=== PATIENT | female | born 1995 | race American Indian/Alaskan Native ===

== ENCOUNTER 2025-01-08 10:03 | Outpatient (REF) | payer MEDICAID, SELFPAY ==
--- NOTE | 2025-01-08 09:50 | PAPFT_PTH ---
PATIENT: Sandra Nogueira LOC: [facility] U#:[id number] AGE/SX: 29/F ROOM: RE01/08/[address]: Codie Carreon NP : 1995 BED: DIS: 01/08/2025 SPEC #: [id number] RECD: 01/08/25 12:46 STATUS: ANDREA REQ #: [id number] KIEL: 01/08/25 09:[address]: Lauri JOHNS,Codie [facility]PT[facility] Cytology RECD BY: Priyanka Vera ENTERED: 01/08/25 12:47 SP TYPE: PAPFT OTHR DR: Unknown,Unknown Tissues: 1 - CX/ENDOCX FOR PAP SMEARS Procedures: PAP THIN PREP/[facility] Screening HPV DNA PROBE Comments: [id number] (HPV 16 & 18/45)
== END 2025-01-08 10:04 | disposition home or self-care (01) ==
LOC: LBN 10:03
PROVIDERS: Visit Provider Nurse Practitioner Women's Health
DX: Z12.4 Encounter for screening for malignant neoplasm of cervix (principal)
CPT/HCPCS: 88142; 87624

== ENCOUNTER 2025-02-14 12:29 | Outpatient (REF) | payer MEDICAID, SELFPAY ==
[2025-02-14 15:01] LABS: Abs Immature Grans 0.01 10^3/uL (0.0-0.06); HCT 42.1 % (36.0-46.0); HGB 13.8 g/dL (11.2-15.7); Immature Grans % 0.2 %; MCH 29.7 pg (27.0-33.0); MCHC 32.8 % (32.0-36.0); MCV 91 fL (80-95); MPV 11.5 fL (8.0-11.0); Platelet Count 214 10^3/uL (130-400); RBC 4.65 10^6/uL (3.93-5.22); RDW 12.6 % (11.7-14.6); RDW-SD 41.8 fL; WBC 6.22 10^3/uL (4.4-10.8)
[2025-02-14 15:09] LABS: Hemoglobin A1C 5.2 % (<5.7)
[2025-02-14 15:34] LABS: ALT 23 U/L (14-59); AST 18 U/L (15-37); Albumin 4.0 g/dL (3.4-5.0); Alkaline Phosphatase 59 U/L (46-116); Anion Gap 8.6 mmol/L (3-11); BUN 15 mg/dL (7-18); Bilirubin, Total 0.6 mg/dL (0.2-1.0); CO2 27.4 mmol/L (21.0-32.0); Calcium 9.3 mg/dL (8.5-10.1); Chloride 103 mmol/L (98-107); Estimated GFR 119.99 (mL/min/1.73m2); Glucose 87 mg/dL (74-106); Potassium 4.5 mmol/L (3.5-5.1); Sodium 139 mmol/L (136-145); TSH (W/Ref FT4) 1.56 uIU/mL (0.36-3.74); Total Protein 7.4 g/dL (6.4-8.2); Vitamin B12 433 pg/mL (193-986)
== END 2025-02-14 12:30 | disposition home or self-care (01) ==
LOC: LBN 12:29
PROVIDERS: Visit Provider Physician Assistant Medical
DX: R53.83 Other fatigue (principal)
CPT/HCPCS: 80053; 82533; 82607; 83036; 84443; 85025

== ENCOUNTER 2025-03-15 16:53 | Emergency (ER) | payer MEDICAID, SELFPAY ==
[2025-03-15 16:55] VITALS: BP 102/80; PULSE 107; RESP 18; TEMP 37.5; O2SAT 95
--- NOTE | 2025-03-15 17:00 | DI.CT_ITS ---
Exam(s) CT ABDOMEN PELVIS WO EXAM: CT ABDOMEN PELVIS WO CLINICAL HISTORY: Lower abd pain, Flank pain, vomiting. TECHNIQUE: Imaging Protocol: Axial computed tomography images with coronal and sagittal reformatted images were created and reviewed CONTRAST MATERIAL: Intravenous: none Oral: None COMPARISON: No exams were available for comparison FINDINGS: VISUALIZED LUNG BASES: No nodules nor pleural effusions evident. ABDOMEN: There is no ascites. LIVER: There are no obvious focal hepatic lesions evident of this noninfused study. GALLBLADDER/BILIARY: No obvious gallbladder pathology. CBD is not dilated. PANCREAS: No evidence of pancreatic mass nor dilatation of the pancreatic duct. SPLEEN: Spleen is not enlarged. No obvious intrasplenic lesions. ADRENALS: There are no significant adrenal masses. KIDNEYS:Surgical clips medial to the right kidney but no significant focal findings in the right kidney. The right renal pelvis is not dilated. There are no calculi. No hydronephrosis nor hydroureter on either side there are no renal cysts nor solid renal masses evident on this noninfused study.. ABDOMINAL AORTA: Abdominal aorta is not enlarged. LYMPH NODES: There is no retroperitoneal nor paraaortic adenopathy. ABDOMINAL WALL: There is some atrophy or underdevelopment of part of the right rectus abdominal muscle in the upper abdomen. GI: There is no evidence of bowel obstruction, free air, nor abscess. PELVIS: LYMPH NODES: There is no intrapelvic nor inguinal adenopathy. GI: No evidence of appendicitis.No significant sigmoid diverticular disease. No obvious colitis pattern. No obvious abnormality of the terminal ileum. URINARY BLADDER: No calculi nor obvious masses evident REPRODUCTIVE: Uterus and adnexal regions appear unremarkable. No free pelvic fluid. OSSEOUS: No significant osseous lesions. No fractures. No listhesis. No pars defects. IMPRESSION: 1. There are clips medial to the right kidney. There are no distinct focal abnormal renal findings. No calculi. No hydronephrosis. No evidence of obvious UPJ obstruction. Report called by myself to ER provider 03/15/2025 at 5:44 p.m. RADIATION DOSE DELIVERED: 545.54mGy.cm Total DLP DATA REPOSITORY: All CT scans at this facility are submitted to the National Radiology Data Registry (NRDR) Dose Index Registry (DIR) with the [employer] ([employer]). RADIATION OPTIMIZATION: All CT scans at this facility use at least one of these dose optimization techniques: automated exposure control; mA and/or kV adjustment per patient size (includes targeted exams where dose is matched to clinical indication); or iterative reconstruction.
[2025-03-15 17:07] VITALS: BP 102/80; PULSE 107; RESP 18; TEMP 37.5; O2SAT 95
--- NOTE | 2025-03-15 17:09 | W.ED.GENAD ---
Discharge Plan Disposition Patient Disposition: Home Condition: Stable Discharge Details Clinical Impression: UTI (urinary tract infection) Primary Care Provider: Unknown,Unknown ED Provider: Alejandra Miguel Home Meds and New Rx's Prescriptions: New cephalexin 500 mg tablet 500 mg PO BID 10 Days Qty: 20 0RF Rx Instructions: Please take 1 tablet by mouth twice daily for the next 10 days Discharge Instructions Instructions: Urinary Tract Infection, Adult ED Additional Instructions: At this time no evidence for kidney stones or appendicitis. It does appear that you have a urinary tract infection. Please take the antibiotic twice daily for the next 10 days. You are given the first dose here today. You may use the nausea medication 20 to 30 minutes before eating or drinking anything up to 3 times daily. Follow up with primary care provider in 3-5 days. Return to ED sooner if any worsening or concerns. Increase oral fluids. Please take Tylenol or Ibuprofen with food every 4-6 hours as needed for pain and swelling. Thank you for allowing us to care for you today. Stand Alone Forms: Portal Information Referrals: Primary Care Provider [Outside] - 5 days Referral Note: ER follow-up, call for an appointment Discharge Data Discharge Date/Time-TO BE ENTERED AT DEPARTURE: 03/15/25 18:06 HPI General Mode of arrival: ambulatory. Date/Time Provider Initiated Documentation: 03/15/25 16:59. Limitations to Documentation: no limitations. Information obtained by: patient, RN notes reviewed and old records reviewed. HPI Narrative: 29-year-old female presents to the ER with a chief complaint of lower abdominal pain and bilateral flank pain associated with vomiting. This began around 2:00 this morning. Patient states she had food poisoning type symptoms nausea vomiting diarrhea. She reports that the pain is continued. 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 Did not take any medications prior to arrival. Related Data Home Medications Medication Instructions Recorded Confirmed cephalexin 500 mg tablet 500 mg PO BID UTI 10 days #20 tabs 03/15/25 Previous Rx's Medication Instructions Recorded cephalexin 500 mg tablet 500 mg PO BID UTI 10 days #20 tabs 03/15/25 Allergies Allergy/AdvReac Type Severity Reaction Status Date / Time No Known Allergies Allergy Verified 03/15/25 16:59 General Stated Complaint: FlankPain RENEE: 3 Review of Systems Gastrointestinal Gastrointestinal: Reports abdominal pain, Reports diarrhea, Reports nausea and Reports vomiting Genitourinary Genitourinary: Reports as per HPI, Reports dysuria and Reports flank pain Musculoskeletal Musculoskeletal: Reports as per HPI and Reports back pain Exam Narrative Exam Narrative: Constitutional: Alert and oriented x3. Appears stated age. Normal body habitus. Head: Normocephalic, no trauma. Eyes: Pupils PERRL, Red reflex noted, EOM's intact. Eyelids symmetrical without lesions, discharge, or swelling. Chest: RRR, Normal S1, S2, distal pulses intact. Resp: Lungs clear to auscultation bilaterally, no wheezes, rales, or rhonchi. Abdomen: Soft, non-distended, Normoactive bowel sounds all 4 quads. Tender with palpation left and right lower abdomen. No masses or guarding noted. Musculoskeletal: Normal gait, Moves all 4 extremities without difficulty. Skin: No suspicious rashes or lesions. Capillary refill less than 2 sec. Neurologic: Cranial nerves II-XII intact. Alert and oriented x 3. Motor: No deficits noted. Sensory: Intact bilaterally all 4 extremities. Hematologic/Lymphatic: No ecchymosis, no lymphadenopathy. Course Vital Signs Vital signs: Vital Signs Temperature 37.5 C 03/15/25 16:55 Pulse 107 H 03/15/25 16:55 Respiratory Rate 18 03/15/25 16:55 Blood Pressure 102/80 03/15/25 16:55 Pulse Oximetry 95 03/15/25 16:55 Temperature 37.5 C 03/15/25 17:07 Pulse 107 H 03/15/25 17:07 Respiratory Rate 18 03/15/25 17:07 Blood Pressure 102/80 03/15/25 17:07 Pulse Oximetry 95 03/15/25 17:07 Pain Level 8 03/15/25 17:07 Medical Decision Making 29-year-old female presents to the ER with a chief complaint of lower abdominal pain and bilateral flank pain associated with vomiting. This began around 2:00 this morning. Patient states she had food poisoning type symptoms nausea vomiting diarrhea. She reports that the pain is continued. 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 Did not take any medications prior to arrival. Workup ordered including CBC, CMP lipase urinalysis urine and CT abdomen pelvis without contrast. CBC shows a slight leukocytosis with a white blood cell count of 12.05, CT shows no kidney stones or evidence of appendicitis. Urinalysis shows 40 ketones small leukocytes 20-50 RBCs and greater than 50 WBCs with moderate epithelial cells. Squamous contamination noted so no culture at this time however I am concerned that patient does have a urinary tract infection. I will add on a urine culture and treat with cephalexin. Discussed CT results with patient who verbalized understanding discharged in hemodynamically stable condition. This text was generated using [employer] dictation system, please disregard any oddities of phrase or misspellings. Lab Data Lab results reviewed: Yes I reviewed the patient's lab results. Labs: 03/15/25 17:50 Urine - Clean Catch Urine Culture - Pending Laboratory Tests Range/Units 03/15/25 03/15/25 17:10 17:22 WBC (4.4-10.8) 10^3/uL 12.05 H RBC (3.93-5.22) 10^6/uL 4.69 Hgb (11.2-15.7) g/dL 14.2 Hct (36.0-46.0) % 41.5 MCV (80-95) fL 89 MCH (27.0-33.0) pg 30.3 MCHC (32.0-36.0) % 34.2 RDW (11.7-14.6) % 13.2 Plt Count (130-400) 10^3/uL 193 MPV (8.0-11.0) fL 10.6 Immature Gran % % 0.2 Neutrophils % % 93.8 Lymphocytes % % 2.9 Monocytes % % 2.8 Eosinophils % % 0.1 Basophils % % 0.2 Nucleated RBC % (0.0-0.3) % 0.0 Absolute Neutrophils (1.2-6.7) 10^3/uL 11.30 H Absolute Lymphocytes (1.2-3.4) 10^3/uL 0.35 L Absolute Monocytes (0.1-0.8) 10^3/uL 0.34 Absolute Eosinophils (0.0-0.7) 10^3/uL 0.01 Absolute Basophils (0.0-0.2) 10^3/uL 0.02 Sodium (136-145) mmol/L 140 Potassium (3.5-5.1) mmol/L 4.0 Chloride (98-107) mmol/L 107 Carbon Dioxide (20.0-31.0) mmol/L 23.9 Anion Gap (3-11) mmol/L 9.1 BUN (9-23) mg/dL 13 Creatinine (0.55-1.02) mg/dL 0.70 Est GFR (CKD-EPI 2020) (mL/min/1.73m2) 98.33 Glucose (74-106) mg/dL 108 H Calcium (8.3-10.6) mg/dL 8.7 Total Bilirubin (0.2-1.2) mg/dL 0.80 AST (<34) U/L 29 ALT (10-49) U/L 27 Alkaline Phosphatase (46-116) U/L 59 Total Protein (5.7-8.2) g/dL 7.0 Albumin (3.4-5.0) g/dL 4.2 Lipase (<53) U/L 26 Urine Color (Yellow) Yellow Urine Clarity (Clear) Clear Urine pH (5-8) 7.0 Ur Specific [place] (1.005-1.025) 1.015 Urine Protein (Neg-Trace) mg/dL 30 H Urine Ketones (Negative) mg/dL 40 H Urine Blood (Negative) Small H Urine Nitrite (Negative) Negative Urine Bilirubin (Negative) Small H Urine Urobilinogen (Up to 0.2) mg/dL 0.2 Ur Leukocyte Esterase (Negative) Small H Urine RBC (0-2) HPF 20-50 H Urine WBC (0-5) HPF >50 H Ur Epithelial Cells (Negative) HPF Moderate Urine Crystals (Negative) HPF Negative Urine Bacteria (Negative) HPF Many Urine Casts (Negative) LPF 0-2 Hyaline Urine Mucus (Negative) Moderate Ur Culture Indicated? No/Sq. Contamination Urine Glucose (Negative) mg/dL Negative PFSH All Active Problems (Updated 03/15/25 @ 17:53 by Alejandra Miguel NP) UTI (urinary tract infection) (Acute) Medical History Anxiety and depression Surgical History History of kidney surgery Family History Other Breast cancer Diabetes Heart disease Hypertension Social History Smoking/Tobacco Use Status: Never Second Hand Exposure: No Smoking risk assessment performed?: Yes Alcohol Intake: current Alcohol Intake frequency: holidays/special occasions only Drug use: Never Substance use type: does not use Household members: significant other Housing: house Sexually active: Yes Do you think of yourself as: straight/heterosexual Current gender identity: female What is your relationship status?: living with partner Panel score (0-1 are the most socially isolated patients): 1 What type of physical activity do you participate in: regular exercise Duration: 45-60 minutes/day Frequency: daily Seatbelt use: always Helmet use: Yes Do you feel safe at home: Yes Do you feel safe in your relationship?: Yes Female Reproductive History Menstrual Age of Menarche: 12 Duration of menses: 3-5 days control method: natural family planning History History 1 Para Hx # Term Pregnancies Multiple births Hx # Pregnancies Ectopic pregnancies AB induced 1 Hx Number of Living Children AB spontaneous
[2025-03-15 17:18] LABS: Glucose Negative (Negative)
[2025-03-15 17:26] LABS: RBC 20-50 HPF (0-2); WBC >50 HPF (0-5)
[2025-03-15 17:30] LABS: Abs Immature Grans 0.03 10^3/uL (0.0-0.06); HCT 41.5 % (36.0-46.0); HGB 14.2 g/dL (11.2-15.7); Immature Grans % 0.2 %; MCH 30.3 pg (27.0-33.0); MCHC 34.2 % (32.0-36.0); MCV 89 fL (80-95); MPV 10.6 fL (8.0-11.0); Platelet Count 193 10^3/uL (130-400); RBC 4.69 10^6/uL (3.93-5.22); RDW 13.2 % (11.7-14.6); RDW-SD 42.9 fL; WBC 12.05 10^3/uL (4.4-10.8)
[2025-03-15 17:49] LABS: Lipase 26 U/L (<53)
[2025-03-15 17:51] VITALS: PULSE 106; O2SAT 95
[2025-03-15 17:51] LABS: ALT 27 U/L (10-49); AST 29 U/L (<34); Albumin 4.2 g/dL (3.4-5.0); Alkaline Phosphatase 59 U/L (46-116); Anion Gap 9.1 mmol/L (3-11); BUN 13 mg/dL (9-23); Bilirubin, Total 0.80 mg/dL (0.2-1.2); CO2 23.9 mmol/L (20.0-31.0); Calcium 8.7 mg/dL (8.3-10.6); Chloride 107 mmol/L (98-107); Glucose 108 mg/dL (74-106); Potassium 4.0 mmol/L (3.5-5.1); Sodium 140 mmol/L (136-145); Total Protein 7.0 g/dL (5.7-8.2)
[2025-03-15 17:54] VITALS: BP 123/80; PULSE 102; O2SAT 94
[2025-03-15 17:55] VITALS: O2SAT 96
[2025-03-15] MEDS: Ondansetron O.D.T. 4 MG TABEF, 3 TABS/BTL PO (18:00)
[2025-03-15] MEDS: Cephalexin 500 MG CAP PO (18:00)
[2025-03-15] MEDS: Cephalexin 500 MG CAP, 2 CAPS/BTL PO (18:00)
[2025-03-15 18:01] VITALS: BP 126/75; PULSE 99; O2SAT 96
== END 2025-03-15 18:06 | disposition home or self-care (01) ==
PROVIDERS: Emergency Provider Registered Nurse Emergency
DX: R10.30 Lower abdominal pain, unspecified; N39.0 Urinary tract infection, site not specified; R10.A3 Flank pain, bilateral; R11.2 Nausea with vomiting, unspecified; R19.7 Diarrhea, unspecified
CPT/HCPCS: 99284 ×2; 81025; 36415; 80053; 83690; 87077; 74176; 81003; 81015; 85025; 87086; 87186